=== PATIENT | female | born 1955 | race Caucasian/White ===

== ENCOUNTER → 2016-11-30 | Day surgery (SDC) | payer BC ==
[~2016-11-30] MED LIST: APREPITANT 40 MG CAP ONE; BUPIVACAINE HCL PF 0.75% 30 ML VIAL ONE; LACTATED RINGER'S 1000 ML INJ 1,000 ML ONE; LIDOCAINE 1.5%/EPINEPHrine 1:200,000 PF SOLN 30 ML AMP ONE; MIDAZOLAM HCL 5 MG/ML VIAL (1 ML) ONE; ONDANSETRON HCL 4 MG/2 ML VIAL IV PUSH ONE; PROPOFOL 200 MG/20 ML AMP IV ONE; ceFAZolin 2 GM PREMIX 50 ML ONE
--- NOTE | 2016-11-30 10:43 | MP ---
cc: DAWN BALLESTEROS M.D. DATE OF SURGERY: 11/30/2016 PREOPERATIVE DIAGNOSIS Right shoulder chronic arthralgia with impingement syndrome. POSTOPERATIVE DIAGNOSIS Right shoulder superior labral tear, anterior labral tear, undersurface rotator cuff tear and impingement syndrome. PROCEDURE 1. Right shoulder arthroscopic extensive debridement anterior labrum, superior labrum and undersurface rotator cuff tear. 2. Right shoulder arthroscopic subacromial decompression. ANESTHESIA Interscalene block and general. SURGEON Dawn Ballesteros MD MARKETING FINANCE SPECIALIST SURGEON VANESSA Ward ESTIMATED BLOOD LOSS Minimal. SPECIMEN None. COMPLICATIONS None known. INDICATION Leena Irizarry is a 61-year-old female with a three-year history of right shoulder pain. She has had approximately seven steroid injections over a long course of time with temporary improvement only. She had an MRI scan a year and a half ago which showed some mild tendinopathy of the inner substance of the distal supraspinatus and infraspinatus and some undersurface supraspinatus rotator cuff tear. With failure to improve over the long course of time she is now offered arthroscopic surgery. The risks, benefits and alternatives to treatment were thoroughly discussed. The machinist first class, Iván Donahue, is an advanced registered nurse practitioner who sub-specializes in orthopedic surgery. His skill set was medically necessary for the performance of the operation. DETAILS OF PROCEDURE The patient was brought into the operating room. She had been given an interscalene block in the pre-op holding area. She was placed under general anesthetic in the lateral decubitus position right shoulder up, axillary roll in place. The right shoulder was prepped and draped in the usual sterile fashion. IV antibiotics were given. A timeout was completed. Bony landmarks were drawn out. A posterior portal was made. A blunt trocar was used to introduce the cannula. The shoulder was insufflated with saline. The first photograph shows posterior labrum, humeral head and glenoid which all appeared normal. The second photograph showed marked fraying and tearing of the superior labrum and the anterior labrum. The third photograph showed a 25% undersurface rotator cuff tear. We made an anterior portal and proceeded to debride the undersurface rotator cuff tear. We saw that only a few millimeters of the footprint was exposed. We debrided this to bone, but no full-thickness tear was identified. Follow-up photograph taken here. We debrided the anterior labrum and the superior labrum and noted acceptable stability of the biceps root and took our follow-up photograph here. We then went into the subacromial space, identified the anterior acromial inflammation spurring and took this down. We inspected the cuff from the dorsal surface and some mild minimal dorsal surface changes. There was also some calcification seen and this was cleaned out with bursectomy. We performed an anterior acromionectomy removing approximately 4 mm of bone from the anterior acromion. There was excellent hemostasis. Final photograph of the cuff and the subacromial compression. The arthroscopic equipment was removed. Portals were closed with absorbable sutures. Steri-Strips were applied. Sterile dressing applied. The patient was awoken and returned to the recovery room in stable condition. MD ERIC Covington/KRISTEN /10:27 AM /10:37 AM
== END | disposition home or self-care (01) ==
LOC: ESDC 07:38
PROVIDERS: ATTEND Orthopaedic Surgery Sports Medicine
DX: M75.111 Incomplete rotator cuff tear or rupture of right shoulder, not specified as traumatic (principal); M75.41 Impingement syndrome of right shoulder; S43.431A Superior glenoid labrum lesion of right shoulder, initial encounter
CPT/HCPCS: 01630; 01991; 29823; 29826; 64417; J0690; J2250; J2405; J7120; J8501